=== PATIENT | female | born 1955 | race Caucasian/White ===

== ENCOUNTER 2022-08-16 08:17 | Observation (INO) | payer MEDICARE ==
[2022-08-16] MEDS ORDERED: HYDROcodone/Acetaminophen 10/325 mg Tablet ONE (08:40)
[2022-08-16 08:54] LABS: #Eosinphils 0.3 thou/uL (0.0-0.7); #Lymphocytes 1.6 thou/uL (1.20-3.40); #Neutrophils 8.5 thou/uL (1.40-6.50); %Basophils 0.1 % (0.0-1.0); %Eosinophils 2.6 % (0.0-10.0); %Lymphocytes 14.4 % (21.0-51.0); %Monocytes 8.3 % (0.0-10.0); %Neutrophils 74.6 % (42.0-75.0); Hemoglobin 13.2 g/dL (12.0-16.0); Mean Corpuscular HGB CONC 32.7 g/dL (32.0-36.0); Mean Corpuscular Hemoglobin 32.1 pg (27.0-31.0); Mean Corpuscular Volume 98.2 fL (78.0-98.0); Mean Platelet Volume 7.3 fL (7.4-10.4); Platelet Count 327 thou/uL (130-400); RBC Distribution Width 11.7 % (11.5-14.5); White Blood Cell (WBC) Count 11.4 thou/uL (4.8-10.8)
[2022-08-16 09:15] LABS: ALT (SGPT) 47 U/L (8-55); AST (SGOT) 55 U/L (5-34); Albumin 3.7 g/dL (3.4-4.8); Alkaline Phosphatase 212 U/L (40-110); Anion Gap 15 mmol/L (10-20); BUN (Urea Nitrogen) 14 mg/dL (9.8-20.1); Bilirubin, Total 0.6 mg/dL (0.2-1.2); CK (CPK) 37 U/L (29-168); Calc. Creatinine Clearance 0 mL/min (70-130); Calcium 9.4 mg/dL (7.8-10.44); Carbon Dioxide 24 mmol/L (23-31); Chloride 102 mmol/L (98-107); Estimated GFR 73; Globulin 3.4 g/dL (2.4-3.5); Glucose 121 mg/dL (80-115); Potassium 4.1 mmol/L (3.5-5.1); Protein, Total 7.1 g/dL (5.8-8.1); Sodium 137 mmol/L (136-145)
[2022-08-16] MEDS ORDERED: Ondansetron ODT 4 MG TAB PO PRN (12:37)
[2022-08-16] MEDS ORDERED: Ondansetron PF 4 MG/2 ML Vial IVP PRN (12:37)
[2022-08-16] MEDS ORDERED: Gabapentin 300 MG CAP PO PRN ×2 (12:40→14:05)
[2022-08-16] MEDS: traMADol HCl 50 MG TAB PO PRN (15:57)
[2022-08-16] MEDS: Apixaban 5 MG TAB PO SCH (21:15)
[2022-08-16] MEDS: Acetaminophen 325 MG TAB PO PRN (21:16)
[2022-08-16] MEDS: Lisinopril/Hydrochlorothiazide 20 mg/12.5 mg Tablet PO SCH (21:17)
[2022-08-16] MEDS: Metoprolol Tartrate 25 MG TAB PO SCH (21:18)
[2022-08-17] MEDS: traMADol HCl 50 MG TAB PO PRN ×3 (05:09→20:12)
[2022-08-17] MEDS: Acetaminophen 325 MG TAB PO PRN ×3 (05:10→20:12)
[2022-08-17 06:55] LABS: #Eosinphils 0.3 thou/uL (0.0-0.7); #Lymphocytes 1.5 thou/uL (1.20-3.40); #Monocytes 1.2 thou/uL (0.11-0.59); %Basophils 0.2 % (0.0-1.0); %Lymphocytes 11.7 % (21.0-51.0); %Monocytes 8.9 % (0.0-10.0); %Neutrophils 77.2 % (42.0-75.0); Hemoglobin 12.6 g/dL (12.0-16.0); Mean Corpuscular Hemoglobin 32.3 pg (27.0-31.0); Mean Corpuscular Volume 98.1 fL (78.0-98.0); Mean Platelet Volume 7.3 fL (7.4-10.4); Platelet Count 325 thou/uL (130-400); RBC Distribution Width 11.7 % (11.5-14.5); Red Blood Cell (RBC) Count 3.89 mill/uL (4.20-5.40); White Blood Cell (WBC) Count 12.9 thou/uL (4.8-10.8)
[2022-08-17 07:25] LABS: Anion Gap 13 mmol/L (10-20); BUN (Urea Nitrogen) 12 mg/dL (9.8-20.1); Calc. Creatinine Clearance 0 mL/min (70-130); Calcium 9.2 mg/dL (7.8-10.44); Carbon Dioxide 24 mmol/L (23-31); Chloride 100 mmol/L (98-107); Estimated GFR 81; Glucose 150 mg/dL (80-115); Potassium 3.8 mmol/L (3.5-5.1); Sodium 133 mmol/L (136-145)
[2022-08-17] MEDS: Apixaban 5 MG TAB PO SCH ×3 (08:13→20:10)
[2022-08-17] MEDS: Metoprolol Tartrate 25 MG TAB PO SCH ×2 (08:13→20:10)
[2022-08-17] MEDS: Atorvastatin Calcium 10 MG TAB PO SCH (08:13)
[2022-08-17] MEDS: Lisinopril/Hydrochlorothiazide 20 mg/12.5 mg Tablet PO SCH (08:14)
[2022-08-17 12:40] VITALS: BMI 41.9
[2022-08-17] MEDS: Lidocaine 5% Patch TD SCH (16:37)
[2022-08-17] MEDS ORDERED: Potassium Chloride 20 MEQ TAB PO SCH (17:00)
[2022-08-17] MEDS ORDERED: Furosemide 20 MG/2 ML VIAL SLOW IVP SCH (17:00)
[2022-08-17] MEDS ORDERED: Folic Acid 1 MG TAB PO SCH (21:00)
[2022-08-17] MEDS ORDERED: Cyanocobalamin (Vitamin B-12) 1,000 MCG TAB PO SCH (21:00)
[2022-08-18] MEDS ORDERED: Transdermal Patch Removal LIDOCAINE TOP SCH ×2 (05:00→21:00)
[2022-08-18 06:36] LABS: #Eosinphils 0.6 thou/uL (0.0-0.7); #Lymphocytes 1.5 thou/uL (1.20-3.40); #Monocytes 1.3 thou/uL (0.11-0.59); #Neutrophils 10.9 thou/uL (1.40-6.50); %Eosinophils 3.9 % (0.0-10.0); %Lymphocytes 10.7 % (21.0-51.0); %Monocytes 8.9 % (0.0-10.0); %Neutrophils 76.6 % (42.0-75.0); Hemoglobin 13.6 g/dL (12.0-16.0); Mean Corpuscular HGB CONC 32.5 g/dL (32.0-36.0); Mean Corpuscular Hemoglobin 32.3 pg (27.0-31.0); Mean Corpuscular Volume 99.3 fl (78.0-98.0); Mean Platelet Volume 7.3 fL (7.4-10.4); Platelet Count 313 thou/uL (130-400); RBC Distribution Width 11.6 % (11.5-14.5); Red Blood Cell (RBC) Count 4.21 mill/uL (4.20-5.40); White Blood Cell (WBC) Count 14.2 thou/uL (4.8-10.8)
[2022-08-18 07:02] LABS: ALT (SGPT) 53 U/L (8-55); AST (SGOT) 55 U/L (5-34); Albumin 3.3 g/dL (3.4-4.8); Alkaline Phosphatase 250 U/L (40-110); Anion Gap 13 mmol/L (10-20); BUN (Urea Nitrogen) 11 mg/dL (9.8-20.1); Bilirubin, Total 0.7 mg/dL (0.2-1.2); Calc. Creatinine Clearance 146 mL/min (70-130); Calcium 9.4 mg/dL (7.8-10.44); Carbon Dioxide 23 mmol/L (23-31); Chloride 100 mmol/L (98-107); Estimated GFR 90; Globulin 3.9 g/dL (2.4-3.5); Glucose 114 mg/dL (80-115); Potassium 4.3 mmol/L (3.5-5.1); Protein, Total 7.2 g/dL (5.8-8.1); Sodium 132 mmol/L (136-145)
[2022-08-18] MEDS: Metoprolol Tartrate 25 MG TAB PO SCH (08:58)
[2022-08-18] MEDS: Apixaban 5 MG TAB PO SCH (08:58)
[2022-08-18] MEDS: Atorvastatin Calcium 10 MG TAB PO SCH (08:58)
[2022-08-18] MEDS ORDERED: Lidocaine 5% Patch TD SCH (09:00)
[2022-08-18 09:55] VITALS: BP 130/58; TEMP 98.7
[2022-08-18] MEDS: Lidocaine 5% Patch TD SCH (16:29)
[2022-08-21] MEDS ORDERED: Apixaban 5 MG TAB PO SCH (21:00)
== END 2022-08-18 18:22 ==
LOC: ERS 08:17 → T4-B 13:37
PROVIDERS: ADMIT Internal Medicine; ATTEND Internal Medicine
DX: M79.671 Pain in right foot (principal); R06.02 Shortness of breath; R53.1 Weakness; I82.441 Acute embolism and thrombosis of right tibial vein; I11.0 Hypertensive heart disease with heart failure; I50.32 Chronic diastolic (congestive) heart failure; E78.5 Hyperlipidemia, unspecified; R94.5 Abnormal results of liver function studies; D75.89 Other specified diseases of blood and blood-forming organs; G89.4 Chronic pain syndrome; E66.01 Morbid (severe) obesity due to excess calories; Z68.41 Body mass index [BMI] 40.0-44.9, adult; Z86.711 Personal history of pulmonary embolism; Z86.718 Personal history of other venous thrombosis and embolism; Z77.22 Contact with and (suspected) exposure to environmental tobacco smoke (acute) (chronic); Z79.01 Long term (current) use of anticoagulants; Z79.899 Other long term (current) drug therapy; Z88.0 Allergy status to penicillin
CPT/HCPCS: 36415; 71045; 80048; 80053; 82550; 83735; 83880; 84484; 85025; 93005; 96374; G0378; J1940